=== PATIENT | male | born 1980 | race African-American/Black ===

== ENCOUNTER 2018-02-13 19:35 | Inpatient (IN) | payer MEDICAID ==
[~2018-02-13] VITALS: Ht 172.7 cm; Wt 108.9 kg
--- NOTE | ~2018-02-13 | EC ---
PATIENT:TED RENTERIA DATE OF SERVICE: 02/13/18 SEX: M MEDICAL RECORD: [id number] DATE OF : 78 LOCATION:[id number] AGE OF PATIENT: 37 ADMISSION DATE: 02/13/18 REFERRING PHYSICIAN: INTERPRETING PHYSICIAN: VINNY SQUIRES MD ECHOCARDIOGRAM REPORT ECHO CHARGES 4 ECHO COMPLETE Date: 02/15 CLINICAL DIAGNOSIS: FEVER/TIA ECHOCARDIOGRAPHIC MEASUREMENTS (adult normal given) AC root (d.<3.7cm) 3.1 cm LV Septum d (<1.2 cm> 1.0 cm Valve Excursion 2.2 cm LV Septum (systole) 1.4 cm Left Atria (s.<4.0cm> 2.3 cm LVPW d(<1.2cm) 1.4 cm RV (d.<2.3cm) 1.7 cm LVPW (sytole) 1.7 cm LV diastole(<5.6CM) 4.3 cm MV E-F(>70mm/sec) cm LV systole 2.6 cm LVOT Diameter 1.9 cm MV exc.(>10mm) cm Est.ejection fraction (50-75%) % DOPPLER: LVIT cm/sec A 53.0 cm/sec E 46.0 cm/sec LA cm/sec RVSP 32.3 mmHg LVOT 85.0 cm/sec AOP1/2T m/s Asc. Ao 130 cm/sec RVOT 69.0 cm/sec RA cm/sec PA 97.0 cm/sec AV Gradient Peak 6.8 mmHg AV Mean 3.4 mmHg AV Area 1.6 cm MV Gradient Peak 1.0 mmHg MV Mean 0.48 mmHg MV Area cm COMMENTS: Preparation Operator: 1 ALICIA CHAPARROOE Production Reproduction Manager: 4 Dr. Squires TAPE# PACS Pericardial Effusion N DATE OF SERVICE: PROCEDURE: Transthoracic echocardiogram. FINDINGS: 1. The left ventricle shows left ventricular hypertrophy. Inflow characteristics are consistent with diastolic dysfunction. There is significant asynchronous wall motion due to a bundle branch block. However, on top of that, there appears to be hypokinesis in the anterior lateral distribution of the left ventricle with ejection fraction of 35% to 40%. ECHOCARDIOGRAM REPORT [id number] TED RENTERIA 2. The left atrium is normal. 3. The aortic valve is mildly thickened, but otherwise normal. 4. The mitral valve has normal function and structure. 5. The tricuspid valve is normal. 6. The pericardium is normal. 7. The right ventricle is normal. 8. The right atrium is normal. CONCLUSIONS: The patient has evidence for regional wall motion abnormalities as well as asynchronous wall motion consistent with obstructive coronary artery disease and possible prior infarction. The function is mild to moderately reduced with ejection fraction of 35% to 40%. TRANSINT:[id number] Voice Confirmation ID: [id number] DOCUMENT ID: [id number] VINNY SQUIRES MD at 1426 CC: [id number] DICTATION DATE: 02/18/18 0944 LEGAL LIBRARIAN: 02/18/18 1251 DIS IN 02/16/18 [facility] [address] [place] [address]
[2018-02-13 20:00] VITALS: BP 124/87
[2018-02-13 23:20] VITALS: BP 120/80; BP 141/106; BP 155/110
[2018-02-14] VITALS (7 sets, daily range): BP systolic 118–132; BP diastolic 73–86; BMI 36.5; BMI 36.4
[2018-02-14 00:16] LABS: BASOPHILS 0.2 % (0-2); EOSINOPHILS 0.3 % (0-7); HEMATOCRIT 35.7 % (42.0-54.0); HEMOGLOBIN 12.2 g/dL (13.5-17.5); IMMATURE GRANULOCYTES 0.3 % (0-5); LYMPHOCYTES 18.6 % (15-50); MCH 28.8 pg (26.0-34.0); MCHC 34.2 g/dL (31.0-37.0); MCV 84.4 fL (80.0-100.0); MEAN PLATELET VOLUME 9.6 fL (7.4-10.4); MONOCYTES 9.1 % (2-11); NEUTROPHILS 71.5 % (40-80); PLATELET COUNT 342 10x3/uL (130-400); RBC 4.23 10x6/uL (4.20-6.10); RDW 13.9 % (11.5-14.5); WBC 6.5 10x3/uL (4.8-10.8)
[2018-02-14 00:17] LABS: APPEARANCE CLEAR (CLEAR); BILIRUBIN NEGATIVE (NEGATIVE); COLOR YELLOW (YELLOW); GLUCOSE NEGATIVE (NEGATIVE); KETONE NEGATIVE (NEGATIVE); NITRITE NEGATIVE (NEGATIVE); PROTEIN TRACE mg/dL (NEGATIVE); SPECIFIC GRAVITY 1.005 (1.005-1.020); UROBILINOGEN NORMAL (NORMAL)
[2018-02-14 00:19] LABS: BACTERIA FEW /hpf (NONE SEEN); EPITHELIAL CELLS 0-5 /hpf (0-5); RED CELLS - URINE 0-5 /hpf (0-5); WHITE CELLS - URINE 0-5 /hpf (0-5)
[2018-02-14 00:23] LABS: ALBUMIN 3.6 g/dL (3.4-5.0); ANION GAP 13.8 mmol/L (8-16); BILIRUBIN - TOTAL 0.6 mg/dL (0.2-1.3); CALCIUM 8.8 mg/dL (8.5-10.1); CARBON DIOXIDE 29.4 mmol/L (21.0-32.0); CREATININE - SERUM 2.2 mg/dL (0.6-1.3); MAGNESIUM - SERUM 2.2 mg/dL (1.8-2.4); POTASSIUM - SERUM 3.2 mmol/L (3.5-5.1); PROTEIN - SERUM 7.8 g/dL (6.4-8.2)
[2018-02-14] MEDS ORDERED: APAP325 MG PO (05:08)
[2018-02-14] MEDS ORDERED: CEFTRIAXONE1 G/VIAL IM (05:09)
[2018-02-14] MEDS ORDERED: COREG 3.1253.125 MG PO (05:09)
[2018-02-14] MEDS ORDERED: CHLORTHALIDONE25 MG PO (05:10)
[2018-02-14] MEDS ORDERED: VASOTEC20 MG PO (05:12)
[2018-02-14] MEDS ORDERED: OMEPRAZOLE20 M1 PO (05:12)
[2018-02-14] MEDS ORDERED: BAYER CHEWABLE81 MG PO (05:13)
[2018-02-14] MEDS ORDERED: LIPITOR40 MG PO (05:13)
[2018-02-14 05:41] LABS: BASOPHILS 0.2 % (0-2); EOSINOPHILS 0.2 % (0-7); HEMATOCRIT 33.9 % (42.0-54.0); HEMOGLOBIN 11.3 g/dL (13.5-17.5); IMMATURE GRANULOCYTES 0.2 % (0-5); LYMPHOCYTES 19.4 % (15-50); MCHC 33.3 g/dL (31.0-37.0); MCV 83.9 fL (80.0-100.0); MEAN PLATELET VOLUME 9.6 fL (7.4-10.4); MONOCYTES 15.5 % (2-11); NEUTROPHILS 64.5 % (40-80); PLATELET COUNT 352 10x3/uL (130-400); RBC 4.04 10x6/uL (4.20-6.10); RDW 13.6 % (11.5-14.5); WBC 6.2 10x3/uL (4.8-10.8)
[2018-02-14 06:08] LABS: ALBUMIN 3.5 g/dL (3.4-5.0); ANION GAP 14.3 mmol/L (8-16); BILIRUBIN - TOTAL 0.5 mg/dL (0.2-1.3); CALCIUM 8.6 mg/dL (8.5-10.1); CARBON DIOXIDE 28.3 mmol/L (21.0-32.0); CREATININE - SERUM 2.1 mg/dL (0.6-1.3); POTASSIUM - SERUM 3.6 mmol/L (3.5-5.1); PROTEIN - SERUM 7.5 g/dL (6.4-8.2)
[2018-02-14 10:49] LABS: GLUCOSE - CSF 58 MG/DL (40-75); PROTEIN - CSF 70 MG/DL (12-60)
[2018-02-14 11:49] LABS: APPEARANCE - CSF COLORLESS; LYMPH - CSF 86 % (40-80); MONO - CSF 12 % (15-45); NEUT - CSF 2 % (0-6)
[2018-02-14 11:51] LABS: RBC - CSF 8 cmm (0-0)
[2018-02-14 17:53] LABS: CKMB 0.1 U/L (0.0-3.6); CREATINE KINASE 314 UL (21-232)
[2018-02-14 18:04] LABS: TROPONIN-I < 0.017 ng/mL (0.000-0.060)
[2018-02-14 22:50] LABS: CKMB 0.1 U/L (0.0-3.6); CREATINE KINASE 299 UL (21-232)
[2018-02-14 22:51] LABS: TROPONIN-I < 0.017 ng/mL (0.000-0.060)
[2018-02-15 02:26] VITALS: BP 138/83
[2018-02-15 04:28] VITALS: BP 129/77
[2018-02-15 05:30] LABS: BASOPHILS 0.3 % (0-2); EOSINOPHILS 0.7 % (0-7); HEMOGLOBIN 10.8 g/dL (13.5-17.5); IMMATURE GRANULOCYTES 0.2 % (0-5); LYMPHOCYTES 25.5 % (15-50); MCH 28.5 pg (26.0-34.0); MCHC 33.8 g/dL (31.0-37.0); MCV 84.4 fL (80.0-100.0); MEAN PLATELET VOLUME 9.9 fL (7.4-10.4); MONOCYTES 15.7 % (2-11); NEUTROPHILS 57.6 % (40-80); PLATELET COUNT 342 10x3/uL (130-400); RBC 3.79 10x6/uL (4.20-6.10); RDW 13.8 % (11.5-14.5)
[2018-02-15 05:51] LABS: ALBUMIN 3.2 g/dL (3.4-5.0); ANION GAP 12.2 mmol/L (8-16); BILIRUBIN - TOTAL 0.5 mg/dL (0.2-1.3); CALCIUM 8.5 mg/dL (8.5-10.1); CARBON DIOXIDE 27.4 mmol/L (21.0-32.0); POTASSIUM - SERUM 3.6 mmol/L (3.5-5.1)
[2018-02-15 06:09] LABS: CKMB 0.1 U/L (0.0-3.6); CREATINE KINASE 264 UL (21-232); TROPONIN-I < 0.017 ng/mL (0.000-0.060)
[2018-02-15 09:48] VITALS: BP 114/76
[2018-02-15 13:22] VITALS: BP 112/82
[2018-02-15 15:03] LABS: HIV 1 & 2- RAPID SCREEN NEGATIVE (NEGATIVE)
[2018-02-15 18:10] VITALS: BP 165/80
[2018-02-15 20:00] VITALS: BP 130/72
[2018-02-15 20:36] VITALS: Ht 172.7 cm; Wt 108.9 kg
[2018-02-16 20:07] LABS: HSV 1 DNA (PCR) Negative (Negative); HSV 2 DNA (PCR) Negative (Negative)
[2018-02-18 11:14] LABS: CRYPTO AG - CSF Negative (Negative); CRYPTOCOCCUS AG - SERUM Negative (Negative)
[2018-02-18 13:15] LABS: FUNGUS STAIN Final report (())
[2018-03-15 16:15] LABS: FUNGUS MYCOLOGY CULTURE Final report (())
== END 2018-02-16 01:38 | disposition short-term general hospital (02) | DRG 75 ==
LOC: D.MS 19:35
PROVIDERS: Family Medicine; Internal Medicine Nephrology; Student in an Organized Health Care Education/Training Program
PROC: 009U3ZX Drainage of Spinal Canal, Percutaneous Approach, Diagnostic (ICD-10-PCS; principal; 2018-02-14)
PROC: B01B1ZZ Fluoroscopy of Spinal Cord using Low Osmolar Contrast (ICD-10-PCS; 2018-02-14)
DX: A87.9 Viral meningitis, unspecified (principal); I63.9 Cerebral infarction, unspecified; N17.9 Acute kidney failure, unspecified; R83.6 Abnormal cytological findings in cerebrospinal fluid; E11.65 Type 2 diabetes mellitus with hyperglycemia; Z79.4 Long term (current) use of insulin; I10 Essential (primary) hypertension; J45.909 Unspecified asthma, uncomplicated; K21.9 Gastro-esophageal reflux disease without esophagitis; E87.6 Hypokalemia; R55 Syncope and collapse; R42 Dizziness and giddiness; R29.810 Facial weakness; Z87.891 Personal history of nicotine dependence